=== PATIENT | female | born 1980 | race Asian ===

== ENCOUNTER 2017-10-21 15:09 | Emergency (ER) | payer OTHER, SELFPAY ==
[2017-10-22 07:27] LABS: URINE HCG POC HCG NEGATIVE (Negative)
[2017-10-22 10:38] LABS: NEGATIVE OBC STREP NEG; POSITIVE OBC STREP POS
== END 2017-10-21 17:05 | disposition home or self-care (01) ==
LOC: ER 15:09
DX: J20.8 Acute bronchitis due to other specified organisms (principal); J02.8 Acute pharyngitis due to other specified organisms; B97.89 Other viral agents as the cause of diseases classified elsewhere
CPT/HCPCS: 71046; 81025; 87070; 87880; 99285-25

== ENCOUNTER 2020-03-03 17:40 | Emergency (ER) | payer SELFPAY ==
[~2020-03-03] VITALS: Ht 162.6 cm; Wt 55.4 kg
[~2020-03-03 17:40] MED LIST: BENZ100C PO; PRED50TA PO; PROAIR RESPICL90 MCG IH
[2020-03-03] MEDS ORDERED: IV NORMAL SALINE 1000ML BAG 1,000 ML IV ONE (19:00)
[2020-03-03] MEDS ORDERED: METOCLOPRAMIDE HCL 10 MG/2 ML VIAL. IVP ONE (19:00)
[2020-03-03] MEDS ORDERED: GLUCAGON,HUMAN RECOMBINANT 1 MG/ML VIAL. IV ONE (19:00)
--- NOTE | 2020-03-03 20:42 | RAD ---
Exam: Chest 2 views INDICATION: Food bolus TECHNIQUE: Frontal and lateral views of the chest Comparisons: 10/21/2017 FINDINGS: The cardiomediastinal silhouette and pulmonary vessels are within normal limits. The lung and pleural spaces are clear. IMPRESSION: No acute cardiopulmonary process. Electronically signed by: Fredi Romeo MD (03/03/2020 8:39 PM) [id number]
--- NOTE | 2020-03-03 20:46 | RAD ---
Study: CR NECK SOFT TISSUE Indication: Fish bone stuck in the throat. Comparison: None. Findings: No radiopaque body is seen within the visualized airway resembling a fishbone. Normal epiglottis and prevertebral soft tissue thickness. 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 No radiographic evidence for a foreign body stuck within the visualized airway. 2. 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 Electronically signed by: NEYDA MCHUGH MD (03/03/2020 8:43 PM) [id number]
--- NOTE | 2020-03-03 20:53 | PHYS DOC ---
Past Medical History Past Medical History: No Pertinent History Additional Past Medical Histor: Pt poor historian Past Surgical History: No Surgical History Smoking Status: Never Smoker Alcohol Use: None Drug Use: None General Adult EDM: Chief Complaint: FOREIGN BODY HPI: HPI: 39-year-old female presents to the ED with complaints of eating fish around 7 PM last night, states she has a very small less than 0.5 cm fishbone, foreign body sensation in the right anterior aspect of her neck. Patient states she was vomiting copiously last night-scant blood in vomit. States she still feels as if it is there. Tolerated porridge and water today with no vomiting. Still co mplains of pain in her neck. Review of systems: Denies associated fever, chills, cough, dyspnea, chest pain, hematemesis, diarrhea, abdominal pain, cough, hemoptysis, leg swelling, rash, drooling or changes in speech. Patient's primary language is zotung - no manager editorial service for this dialect. [employer] services was used for Icelandic language. Review of Systems: Review of Systems: Constitutional: Denies fever or chills. [] Eyes: Denies change in visual acuity. [] HENT: Denies nasal congestion or sore throat. [] Respiratory: Denies cough or shortness of breath. [] Cardiovascular: Denies chest pain or edema. [] GI: Denies abdominal pain, nausea, vomiting, bloody stools or diarrhea. [] : Denies dysuria. [] Musculoskeletal: Denies back pain or joint pain. [] Integument: Denies rash. [] Neurologic: Denies headache, focal weakness or sensory changes. [] Endocrine: Denies polyuria or polydipsia. [] Lymphatic: Denies swollen glands. [] Psychiatric: Denies depression or anxiety. [] Heart Score: Risk Factors: Risk Factors: DM, Current or recent (<one month) smoker, HTN, HLP, family history of CAD, obesity. Risk Scores: Score 0 - 3: 2.5% MACE over next 6 weeks - Discharge Home Score 4 - 6: 20.3% MACE over next 6 weeks - Admit for Clinical Observation Score 7 - 10: 72.7% MACE over next 6 weeks - Early Invasive Strategies Current Medications: Current Medications Medications (Trade) Dose Ordered Sig/Chano Start Time Stop Time Status Last Admin Dose Admin Glucagon (Glucagen) 1 mg 1X ONCE 03/03/20 19:00 03/03/20 19:01 DC 03/03/20 19:19 1 MG Metoclopramide HCl (Reglan Vial) 10 mg 1X ONCE 03/03/20 19:00 03/03/20 19:01 DC 03/03/20 19:20 10 MG Sodium Chloride 1,000 ml @ 1,000 mls/hr 1X ONCE 03/03/20 19:00 03/03/20 19:59 DC 03/03/20 19:20 1,000 MLS/HR Allergies: Allergies: Allergies Coded Allergies Type Severity Reaction Last Updated Verified No Known Drug Allergies 10/21/17 No Physical Exam: PE: Constitutional: Well developed, well nourished, no acute distress, non-toxic appearance. [] HENT: Normocephalic, atraumatic, bilateral external ears normal, oropharynx moist, no oral exudates, nose normal, no neck or chest wall crepitus, speaking in full sentences, no drooling or dysphasia Eyes: PERRLA, EOMI, conjunctiva normal, no discharge. [] Neck: Normal range of motion, no tenderness, supple, no stridor. [] Cardiovascular:Heart rate regular rhythm, no murmur [] Lungs & Thorax: Bilateral breath sounds clear to auscultation [] Abdomen: Bowel sounds normal, soft, no tenderness, no masses, no pulsatile masses. [] Skin: Warm, dry, no erythema, no rash. [] Back: No tenderness, no CVA tenderness. [] Extremities: No tenderness, no cyanosis, no clubbing, ROM intact, no edema. [] Neurologic: Alert and oriented X 3, normal motor function, normal sensory function, no focal deficits noted. [] Psychologic: Affect normal, judgement normal, mood normal. [] Current Patient Data: Labs: Laboratory Tests Test 03/03/20 18:30 POC Urine HCG, Qualitative Hcg negative (Negative) Vital Signs: Vital Signs Date Time Temp Pulse Resp B/P (MAP) Pulse Ox O2 Delivery O2 Flow Rate FiO2 03/03/20 20:09 77 16 113/57 (75) 98 Room Air 03/03/20 18:10 98.4 98.4 EKG: EKG: [] Radiology/Procedures: Radiology/Procedures: IMAGING REPORT Signed PATIENT: MIQUEL DARNELL ACCOUNT: [id number] : 1980 LOCATION: ER AGE: 39 SEX: F EXAM STATUS: REG ER ORD. PHYSICIAN: AUGUSTIN VICTORIA DO REASON: food bolus PROCEDURE: CHEST PA & LATERAL Exam: Chest 2 views INDICATION: Food bolus TECHNIQUE: Frontal and lateral views of the chest Comparisons: 10/21/2017 FINDINGS: The cardiomediastinal silhouette and pulmonary vessels are within normal limits. The lung and pleural spaces are clear. IMPRESSION: No acute cardiopulmonary process. Electronically signed by: Fredi Vale MD (03/03/2020 8:39 PM) [id number] DICTATED and SIGNED BY: FREDI VALE MD DATE: 03/03/202038 IMAGING REPORT Signed PATIENT: MIQUEL DARNELL ACCOUNT: [id number] : 1980 LOCATION: ER AGE: 39 SEX: F EXAM STATUS: REG ER ORD. PHYSICIAN: RADHA CODY APRN REASON: FISH BONE STUCK IN THROAT [facility] PROCEDURE: NECK SOFT TISSUE Study: CR NECK SOFT TISSUE Indication: Fish bone stuck in the throat. Comparison: None. Findings: No radiopaque body is seen within the visualized airway resembling a fishbone. Normal epiglottis and prevertebral soft tissue thickness. 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 No radiographic evidence for a foreign body stuck within the visualized airway. 2. 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 Electronically signed by: NEYDA MCHUGH MD (03/03/2020 8:43 PM) [id number] DICTATED and SIGNED BY: NEYDA MCHUGH MD DATE: 03/03/202042 Impression: Imaging unremarkable for radiolucent foreign body. Patient was treated with carbonated beverages, glucagon in ED. Patient with full resolution of symptoms. Tolerated liquids in the ED. Strict ED return precautions for recurrence of symptoms. Courage PMD follow-up. All patient's questions were answered and she was stable at time of discharge. Course & Med Decision Making: Course & Med Decision Making Pertinent Labs and Imaging studies reviewed. (See chart for details) [] Dragon Disclaimer: Dragon Disclaimer: This electronic medical record was generated, in whole or in part, using a voice recognition dictation system. Departure Departure Impression: Primary Impression: Bolus impaction of digestive tract Additional Impression: Nausea & vomiting Disposition: HOME, SELF-CARE Condition: STABLE Referrals: NO PCP (PCP) NANI SERRATO MD Patient Instructions: Nausea and Vomiting Justicifation of Admission Dx: Justifications for Admission: Justification of Admission Dx: N/A AUGUSTIN VICTORIA DO Mar 03, 2020 20:52
[2020-03-04 00:39] VITALS: BP 107/57
== END 2020-03-04 01:40 | disposition home or self-care (01) ==
LOC: ER 17:40
DX: T18.8XXA Foreign body in other parts of alimentary tract, initial encounter (principal); R11.2 Nausea with vomiting, unspecified; X58.XXXA Exposure to other specified factors, initial encounter; Y93.89 Activity, other specified; Y92.89 Other specified places as the place of occurrence of the external cause; Y99.8 Other external cause status
CPT/HCPCS: 70360; 71046; 81025; 96361; 96374; 96375; 99285; J1610; J2765; J7030